=== PATIENT | female | born 1950 | race Caucasian/White ===

== ENCOUNTER 2019-01-12 18:27 | Observation (INO) | payer MEDICARE, BC ==
[2019-01-12] MEDS ORDERED: Sodium Chloride 0.9% 2.5 ML Syringe FLUSH PRN (19:30)
[2019-01-12] MEDS ORDERED: Ketorolac 30 MG/ML SDV IVPUSH ONE (19:30)
[2019-01-12] MEDS ORDERED: Sodium Chloride 0.9% 1,000 ML IV ONE ×2 (19:30→21:18)
[2019-01-12] MEDS ORDERED: Morphine 2 MG/ML Syringe IVPUSH ONE (19:30)
[2019-01-12] MEDS ORDERED: Ondansetron 4 MG/2 ML SDV IVPUSH ONE (19:30)
[2019-01-12] MEDS ORDERED: Sodium Chloride 0.9% 10 ML Syringe FLUSH PRN (19:30)
--- NOTE | 2019-01-12 19:34 | EDM.PDOC ---
ED HPI GENERAL MEDICAL PROBLEM - General Chief Complaint: Gastrointestinal Problem Stated Complaint: PT HAS STOMACH PAINS Time Seen by Provider: 01/12/19 19:25 - History of Present Illness INITIAL COMMENTS - FREE TEXT/NARRATIVE: HISTORY AND PHYSICAL: History of present illness: The patient is a 68-year-old female with a history of hypercholesterolemia and hypothyroidism who has a provider in [place] and presents with a 2 day history of abdominal pain progressing to nausea vomiting. Patient says that at its onset it was somewhat sudden but it was in the middle of her abdomen and now the pain is more radiating to the right upper quadrant and the right flank. She did not have nausea or vomiting until today and today she has not been able to tolerate anything by mouth. She says she has an appetite but she vomits anything that she tries to eat or drink. She's had no GI or history and has no hematuria dysuria or frequency. The patient has not had a fever at home but is felt very hot and has had no upper respiratory symptoms. She is not taking anything [id number] for this. She's been having normal bowel movements which are not diarrhea black or bloody. She's had no recent trauma or illnesses. Review of systems: As per history of present illness and below otherwise all systems reviewed and negative. Past medical history: As per history of present illness and as reviewed below otherwise noncontributory. Surgical history: As per history of present illness and as reviewed below otherwise noncontributory. Social history: No reported history of drug or alcohol abuse. Family history: As per history of present illness and as reviewed below otherwise noncontributory. Physical exam: General: Well-developed well-nourished mildly overweight female who is nontoxic but looks uncomfortable in the room. She keeps moving about and grabbing her right side. Vital signs were noted by me HEENT: Atraumatic, normocephalic, negative for conjunctival pallor or scleral icterus, mucous membranes moist, throat clear, neck supple, nontender, trachea midline. Lungs: Clear to auscultation, breath sounds equal bilaterally, chest nontender. Heart: S1S2, regular rate and rhythm no overt murmurs Abdomen: Soft, nondistended, slightly hyperactive bowel sounds without any tympany on percussion and there is some diffuse vague tenderness to palpation throughout the abdomen more specifically tender in the right upper quadrant and not in the epigastrium. There is no rebound or guarding Negative for masses or hepatosplenomegaly. Negative for costovertebral tenderness. Pelvis: Stable nontender. Genitourinary: Deferred. Rectal: Deferred. Extremities: Atraumatic, negative for cords or calf pain. Neurovascular unremarkable. Neuro: Awake, alert, oriented. Cranial nerves II through XII unremarkable. Cerebellum unremarkable. Motor and sensory unremarkable throughout. Exam nonfocal. Diagnostics: CBC CMP H. pylori amylase lipase UA with reflex CT scan of the abdomen and pelvis Therapeutics: IV fluids Toradol morphine Zofran Dilaudid After receiving the lipase results we queried the patient and she does not drink alcohol and any regular basis and only has it occasionally. 2255: Testing results were discussed with the patient and at bedside as well as with Dr. Tee. We will plan on maintenance IV fluids nothing by mouth status and I will give some more pain medication and plan for observation admission. The hospitalist accepts the patient Impression: Acute pancreatitis Definitive disposition and diagnosis as appropriate pending reevaluation and review of above. abdominal pain Pain Score (Numeric/FACES): 7 - Related Data Allergies Allergy/AdvReac Type Severity Reaction Status Date / Time general anesthesia Allergy Respiratory Uncoded 01/12/19 18:50 Depression Home Meds: Home Meds Estrogen,Con/M-Progest Acet [Prempro 0.3 MG-1.5 MG] 1 tab PO DAILY 10/09/16 [ History] Levothyroxine 1 tab PO DAILY 10/09/16 [History] atorvaSTATin [Lipitor] 1 tab PO DAILY 10/09/16 [History] Naproxen 500 mg PO BID 01/12/19 [History] Past Medical History - Past Health History Medical/Surgical History: Denies Medical/Surgical History Cardiovascular History: Reports: High Cholesterol Other Respiratory History: Reported history of sinusitis. - Infectious Disease History Infectious Disease History: Reports: Chicken Pox - Past Surgical History Other Musculoskeletal Surgeries/Procedures:: ankle repair. back surgery Social & Family History - Family History Family Medical History: Noncontributory - Tobacco Use Smoking Status *Q: Never Smoker - Caffeine Use Caffeine Use: Reports: Coffee Caffeine Use Comment: 2cups/day - Recreational Drug Use Recreational Drug Use: No ED ROS GENERAL - Review of Systems Review Of Systems: ROS reveals no pertinent complaints other than HPI. ED EXAM, GENERAL - Physical Exam Exam: See Below (See dictation) Course - Vital Signs Last Recorded V/S: Last Vital Signs Temp 36.4 C 01/12/19 21:30 Pulse 76 01/12/19 21:30 Resp 18 01/12/19 21:30 BP 146/76 H 01/12/19 21:30 Pulse Ox 96 01/12/19 21:30 - Orders/Labs/Meds Orders: Active Orders 24 hr Category Date Time Status Sodium Chloride 0.9% [Normal Saline] 1,000 ml Med 01/12/19 22:30 Active IV ASDIRECTED Sodium Chloride 0.9% [Saline Flush] Med 01/12/19 19:30 Active 10 ml FLUSH ASDIRECTED PRN Sodium Chloride 0.9% [Saline Flush] Med 01/12/19 19:30 Active 2.5 ml FLUSH ASDIRECTED PRN Saline Lock Insert [OM.PC] Stat Oth 01/12/19 19:30 Ordered Medication Orders Sodium Chloride (Normal Saline) 1,000 mls @ 150 mls/hr IV ASDIRECTED ALEX Sodium Chloride (Saline Flush) 10 ml FLUSH ASDIRECTED PRN PRN Reason: Keep Vein Open Sodium Chloride (Saline Flush) 2.5 ml FLUSH ASDIRECTED PRN PRN Reason: Keep Vein Open Labs: Laboratory Tests 01/12/19 01/12/19 01/12/19 Range/Units 19:47 19:47 19:47 WBC 12.37 H (4.0-11.0) K/uL RBC 4.38 (4.30-5.90) M/uL Hgb 13.5 (12.0-16.0) g/dL Hct 39.3 (36.0-46.0) % MCV 89.7 (80.0-98.0) fL MCH 30.8 (27.0-32.0) pg MCHC 34.4 (31.0-37.0) g/dL RDW Std Deviation 46.6 (28.0-62.0) fl RDW Coeff of [place] 14 (11.0-15.0) % Plt Count 219 (150-400) K/uL MPV 11.90 (7.40-12.00) fL Neut % (Auto) 81.8 H (48.0-80.0) % Lymph % (Auto) 9.3 L (16.0-40.0) % [place] % (Auto) 8.0 (0.0-15.0) % Eos % (Auto) 0.7 (0.0-7.0) % Baso % (Auto) 0.2 (0.0-1.5) % Neut # (Auto) 10.1 H (1.4-5.7) K/uL Lymph # (Auto) 1.2 (0.6-2.4) K/uL [place] # (Auto) 1.0 H (0.0-0.8) K/uL Eos # (Auto) 0.1 (0.0-0.7) K/uL Baso # (Auto) 0.0 (0.0-0.1) K/uL Nucleated RBC % 0.0 /100WBC Nucleated RBCs # 0 K/uL Sodium 143 (136-145) mmol/L Potassium 3.8 (3.5-5.1) mmol/L Chloride 106 (98-107) mmol/L Carbon Dioxide 23.3 (21.0-32.0) mmol/L BUN 22 H (7.0-18.0) mg/dL Creatinine 0.9 (0.6-1.0) mg/dL Est Cr Clr Drug Dosing 62.03 mL/min Estimated GFR (MDRD) > 60.0 ml/min Glucose 114 H (74-106) mg/dL Calcium 9.2 (8.5-10.1) mg/dL Total Bilirubin 0.5 (0.2-1.0) mg/dL AST 12 L (15-37) IU/L ALT 22 (14-63) IU/L Alkaline Phosphatase 75 (46-116) U/L Total Protein 7.8 (6.4-8.2) g/dL Albumin 3.7 (3.4-5.0) g/dL Globulin 4.1 H (2.6-4.0) g/dL Albumin/Globulin Ratio 0.9 (0.9-1.6) Amylase 140 H (25-115) U/L Lipase 1037 H (73-393) U/L Urine Color Urine Appearance Urine pH (5.0-8.0) Ur Specific [place] (1.001-1.035) Urine Protein (NEGATIVE) mg/dL Urine Glucose (UA) (NEGATIVE) mg/dL Urine Ketones (NEGATIVE) mg/dL Urine Occult Blood (NEGATIVE) Urine Nitrite (NEGATIVE) Urine Bilirubin (NEGATIVE) Urine Ictotest Urine Urobilinogen (<2.0) EU/dL Ur Leukocyte Esterase (NEGATIVE) Urine RBC (0-2/HPF) Urine WBC (0-5/HPF) Ur Epithelial Cells (NONE-FEW) Urine Bacteria (NEGATIVE) H. pylori IgG Antibody NEGATIVE (NEG) 01/12/19 Range/Units 20:40 WBC (4.0-11.0) K/uL RBC (4.30-5.90) M/uL Hgb (12.0-16.0) g/dL Hct (36.0-46.0) % MCV (80.0-98.0) fL MCH (27.0-32.0) pg MCHC (31.0-37.0) g/dL RDW Std Deviation (28.0-62.0) fl RDW Coeff of [place] (11.0-15.0) % Plt Count (150-400) K/uL MPV (7.40-12.00) fL Neut % (Auto) (48.0-80.0) % Lymph % (Auto) (16.0-40.0) % [place] % (Auto) (0.0-15.0) % Eos % (Auto) (0.0-7.0) % Baso % (Auto) (0.0-1.5) % Neut # (Auto) (1.4-5.7) K/uL Lymph # (Auto) (0.6-2.4) K/uL [place] # (Auto) (0.0-0.8) K/uL Eos # (Auto) (0.0-0.7) K/uL Baso # (Auto) (0.0-0.1) K/uL Nucleated RBC % /100WBC Nucleated RBCs # K/uL Sodium (136-145) mmol/L Potassium (3.5-5.1) mmol/L Chloride (98-107) mmol/L Carbon Dioxide (21.0-32.0) mmol/L BUN (7.0-18.0) mg/dL Creatinine (0.6-1.0) mg/dL Est Cr Clr Drug Dosing mL/min Estimated GFR (MDRD) ml/min Glucose (74-106) mg/dL Calcium (8.5-10.1) mg/dL Total Bilirubin (0.2-1.0) mg/dL AST (15-37) IU/L ALT (14-63) IU/L Alkaline Phosphatase (46-116) U/L Total Protein (6.4-8.2) g/dL Albumin (3.4-5.0) g/dL Globulin (2.6-4.0) g/dL Albumin/Globulin Ratio (0.9-1.6) Amylase (25-115) U/L Lipase (73-393) U/L Urine Color YELLOW Urine Appearance HAZY Urine pH 5.5 (5.0-8.0) Ur Specific [place] 1.025 (1.001-1.035) Urine Protein TRACE H (NEGATIVE) mg/dL Urine Glucose (UA) NEGATIVE (NEGATIVE) mg/dL Urine Ketones >=80 (NEGATIVE) mg/dL Urine Occult Blood LARGE H (NEGATIVE) Urine Nitrite NEGATIVE (NEGATIVE) Urine Bilirubin SMALL H (NEGATIVE) Urine Ictotest NEGATIVE Urine Urobilinogen 0.2 (<2.0) EU/dL Ur Leukocyte Esterase NEGATIVE (NEGATIVE) Urine RBC 20-30 (0-2/HPF) Urine WBC 1-3 (0-5/HPF) Ur Epithelial Cells FEW (NONE-FEW) Urine Bacteria FEW (NEGATIVE) H. pylori IgG Antibody (NEG) Meds: Medications Generic Name Dose Route Start Last Admin Trade Name Freq PRN Reason Stop Dose Admin Sodium Chloride 1,000 mls @ 150 mls/hr 01/12/19 22:30 Normal Saline IV ASDIRECTED ALEX Sodium Chloride 10 ml 01/12/19 19:30 Saline Flush FLUSH ASDIRECTED PRN Keep Vein Open Sodium Chloride 2.5 ml 01/12/19 19:30 Saline Flush FLUSH ASDIRECTED PRN Keep Vein Open Discontinued Medications Generic Name Dose Route Start Last Admin Trade Name Freq PRN Reason Stop Dose Admin Hydromorphone HCl 1 mg 01/12/19 22:55 Dilaudid IVPUSH 01/12/19 22:56 ONETIME ONE Sodium Chloride 1,000 mls @ 999 mls/hr 01/12/19 19:30 01/12/19 19:54 Normal Saline IV 01/12/19 20:30 999 mls/hr STAT ONE Administration Sodium Chloride 1,000 mls @ 999 mls/hr 01/12/19 21:18 01/12/19 21:28 Normal Saline IV 01/12/19 22:18 999 mls/hr STAT ONE Administration Iopamidol 100 ml 01/12/19 20:40 Isovue-370 (76%) IVPUSH 01/12/19 20:41 ONETIME ONE Ketorolac Tromethamine 30 mg 01/12/19 19:30 01/12/19 19:53 Toradol IVPUSH 01/12/19 19:31 30 mg ONETIME ONE Administration Morphine Sulfate 2 mg 01/12/19 19:30 01/12/19 19:54 Morphine IVPUSH 01/12/19 19:31 2 mg ONETIME ONE Administration Ondansetron HCl 4 mg 01/12/19 19:30 01/12/19 19:53 Zofran IVPUSH 01/12/19 19:31 4 mg ONETIME ONE Administration Departure - Departure Time of Disposition: 22:57 Disposition: Refer to Observation Condition: Good Clinical Impression: Pancreatitis - Discharge Information Referrals: Sukhjinder Walters MD, PhD [Primary Care Provider] - Forms: ED Department Discharge - My Orders Last 24 Hours: My Active Orders 01/12/19 19:30 Sodium Chloride 0.9% [Saline Flush] 10 ml FLUSH ASDIRECTED PRN Sodium Chloride 0.9% [Saline Flush] 2.5 ml FLUSH ASDIRECTED PRN Saline Lock Insert [OM.PC] Stat 01/12/19 22:30 Sodium Chloride 0.9% [Normal Saline] 1,000 ml IV ASDIRECTED - Assessment/Plan Last 24 Hours: My Active Orders 01/12/19 19:30 Sodium Chloride 0.9% [Saline Flush] 10 ml FLUSH ASDIRECTED PRN Sodium Chloride 0.9% [Saline Flush] 2.5 ml FLUSH ASDIRECTED PRN Saline Lock Insert [OM.PC] Stat 01/12/19 22:30 Sodium Chloride 0.9% [Normal Saline] 1,000 ml IV ASDIRECTED
[2019-01-12 20:28] LABS: CHLORIDE,CL 106 mmol/L (98-107); SODIUM,NA 143 mmol/L (136-145)
--- NOTE | 2019-01-12 22:08 | CT ---
INDICATION: Abdominal pain. TECHNIQUE: CT abdomen and pelvis acquired with 100 cc Isovue 370 IV contrast. COMPARISON: None. FINDINGS: Lower chest: Very small hiatal hernia. Liver: Several tiny low attenuation lesions are too small to characterize and of doubtful significance. Gallbladder and bile ducts: Unremarkable. No stones or inflammation. No biliary dilatation. Pancreas: Moderate inflammation is present about the pancreatic head. Remainder of the pancreas is unremarkable. No sign of abscess or pseudocyst. Spleen: Unremarkable. Normal in size. No masses. Adrenal glands: Unremarkable. No nodules. Kidneys: Unremarkable. No masses, stones, or hydronephrosis. GI tract: There is sigmoid diverticulosis. Remainder of the GI tract is normal in caliber and appearance. Normal appendix. Vasculature: Unremarkable. Lymph nodes: No lymphadenopathy. Omentum/Peritoneum/Abdominal Wall: Unremarkable. No sign of mass or infiltration. No free air or significant free fluid. Pelvis: Unremarkable. Bones: Degenerative disc spondylosis is present at L3-4 and to a lesser extent L5-S1. Otherwise unremarkable. IMPRESSION: Moderate acute pancreatitis without complication. No other acute or significant findings. Please note that all CT scans at this facility use dose modulation, iterative reconstruction, and/or weight-based dosing when appropriate to reduce radiation dose to as low as reasonably achievable. Dictated by Migel Rayo MD @ Jan 13 2019 9:31AM Signed by Dr. Migel Rayo @ Jan 13 2019 9:38AM
[2019-01-12] MEDS ORDERED: Sodium Chloride 0.9% 1,000 ML IV SCH (22:30)
[2019-01-12] MEDS ORDERED: HYDROmorphone 1 MG/ML Syringe IVPUSH ONE (22:55)
[2019-01-12] MEDS ORDERED: Acetaminophen 325 MG Tab PO PRN (23:32)
[2019-01-12] MEDS ORDERED: Morphine 2 MG/ML Syringe IVPUSH PRN (23:33)
[2019-01-13] MEDS: Iopamidol 755 Mg/ML 100 ML Bottle IVPUSH ONE ×2 (00:12→10:02)
[2019-01-13] MEDS: oxyCODONE 5 MG Tab PO PRN ×3 (00:13→15:13)
[2019-01-13] MEDS: Ondansetron 4 MG/2 ML SDV IVPUSH PRN ×2 (03:27→15:09)
[2019-01-13] MEDS ORDERED: Enoxaparin 40 MG/0.4 ML Syringe SUBCUT ONE (04:00)
--- NOTE | 2019-01-13 06:45 | PCM.HP ---
H&P History of Present Illness - General Date of Service: 01/13/19 Admit Problem/Dx: Admission Diagnosis/Problem Admission Diagnosis/Problem Pancreatitis Source of Information: Patient History Limitations: Reports: No Limitations - History of Present Illness Initial Comments - Free Text/Narative: The patient is a 68-year-old lady who had presented to the emergency department with severe abdominal pain. The patient does have a primary care physician who she follows with an [place]. She reportedly had a 2 day history of mid abdominal to epigastric pain which radiates from the middle around to both sides of her abdomen. She is also had nausea and vomiting and been unable to tolerate any fluids or food. The patient also has denied any fever or chills. The patient also denies any hematuria, dysuria or frequency. Onset of Symptoms: Reports: Sudden Symptom Onset Date: 01/10/19 Duration of Symptoms: Reports: Day(s): Location: Reports: Abdomen Quality: Reports: Ache, Stabbing, Throbbing Severity: Severe Improves with: Reports: Medication Worsens with: Reports: Eating, Movement abdominal pain Pain Score (Numeric/FACES): 5 - Related Data Allergies/Adverse Reactions: Allergies Allergy/AdvReac Type Severity Reaction Status Date / Time general anesthesia Allergy Respiratory Uncoded 01/12/19 18:50 Depression Home Medications: Home Meds Estrogen,Con/M-Progest Acet [Prempro 0.3 MG-1.5 MG] 1 tab PO DAILY 10/09/16 [ History] Levothyroxine 1 tab PO DAILY 10/09/16 [History] atorvaSTATin [Lipitor] 1 tab PO DAILY 10/09/16 [History] Naproxen 500 mg PO BID 01/12/19 [History] Past Medical History - Past Health History Medical/Surgical History: Denies Medical/Surgical History HEENT History: Reports: None Cardiovascular History: Reports: High Cholesterol Other Respiratory History: Reported history of sinusitis. Gastrointestinal History: Reports: None Genitourinary History: Reports: None Musculoskeletal History: Reports: None Neurological History: Reports: None Psychiatric History: Reports: None Endocrine/Metabolic History: Reports: Hypothyroidism Hematologic History: Reports: None Immunologic History: Reports: None Oncologic (Cancer) History: Reports: None - Infectious Disease History Infectious Disease History: Reports: Chicken Pox, Measles, Mumps, Rubella, Shingles - Past Surgical History Other Musculoskeletal Surgeries/Procedures:: ankle repair. back surgery Social & Family History - Family History Family Medical History: Noncontributory - Tobacco Use Smoking Status *Q: Never Smoker - Caffeine Use Caffeine Use: Reports: Coffee Caffeine Use Comment: 2cups/day - Recreational Drug Use Recreational Drug Use: No - Living Situation & Occupation Living situation: Reports: , with Spouse Occupation: Retired H&P Review of Systems - Review of Systems: Review Of Systems: See Below General: Reports: No Symptoms HEENT: Reports: No Symptoms Pulmonary: Reports: No Symptoms Cardiovascular: Reports: No Symptoms Gastrointestinal: Reports: Abdominal Pain, Anorexia, Nausea, Vomiting Genitourinary: Reports: No Symptoms Musculoskeletal: Reports: No Symptoms Skin: Reports: No Symptoms Psychiatric: Reports: No Symptoms Neurological: Reports: No Symptoms Hematologic/Lymphatic: Reports: No Symptoms Immunologic: Reports: No Symptoms Exam - Exam Exam: See Below - Vital Signs Vital Signs: Last Vital Signs Temp 37.4 C 01/13/19 03:20 Pulse 82 01/13/19 03:20 Resp 18 01/13/19 03:20 BP 130/73 01/13/19 03:20 Pulse Ox 96 01/13/19 03:20 Weight: 90.809 kg - Exam Quality Assessment: No: Supplemental Oxygen General: Alert, Oriented, Cooperative, Mild Distress HEENT: Conjunctiva Clear, EACs Clear, EOMI, Hearing Intact, PERRLA. No: Mucosa Moist & [place] (Dry) Neck: Supple, Trachea Midline Lungs: Clear to Auscultation, Normal Respiratory Effort Cardiovascular: Regular Rate, Regular Rhythm GI/Abdominal Exam: Normal Bowel Sounds, Soft, Tender (Epigastric). No: Guarding , Rigid, Rebound (Female) Exam: Deferred Rectal (Female) Exam: Deferred Back Exam: Normal Inspection Extremities: Normal Inspection, No Pedal Edema Skin: Warm, Dry, Intact, Other ([place] totalis) Neurological: Cranial Nerves Intact Neuro Extensive - Mental Status: Alert, Oriented x3 Neuro Extensive - Motor, Sensory, Reflexes: CN II-XII Intact Psychiatric: Alert, Normal Affect, Normal Mood - Patient Data Lab Results Last 24 hrs: Laboratory Results - last 24 hr 01/12/19 01/12/19 01/12/19 Range/Units 19:47 19:47 19:47 WBC 12.37 H (4.0-11.0) K/uL RBC 4.38 (4.30-5.90) M/uL Hgb 13.5 (12.0-16.0) g/dL Hct 39.3 (36.0-46.0) % MCV 89.7 (80.0-98.0) fL MCH 30.8 (27.0-32.0) pg MCHC 34.4 (31.0-37.0) g/dL RDW Std Deviation 46.6 (28.0-62.0) fl RDW Coeff of [place] 14 (11.0-15.0) % Plt Count 219 (150-400) K/uL MPV 11.90 (7.40-12.00) fL Neut % (Auto) 81.8 H (48.0-80.0) % Lymph % (Auto) 9.3 L (16.0-40.0) % [place] % (Auto) 8.0 (0.0-15.0) % Eos % (Auto) 0.7 (0.0-7.0) % Baso % (Auto) 0.2 (0.0-1.5) % Neut # (Auto) 10.1 H (1.4-5.7) K/uL Lymph # (Auto) 1.2 (0.6-2.4) K/uL [place] # (Auto) 1.0 H (0.0-0.8) K/uL Eos # (Auto) 0.1 (0.0-0.7) K/uL Baso # (Auto) 0.0 (0.0-0.1) K/uL Nucleated RBC % 0.0 /100WBC Nucleated RBCs # 0 K/uL Sodium 143 (136-145) mmol/L Potassium 3.8 (3.5-5.1) mmol/L Chloride 106 (98-107) mmol/L Carbon Dioxide 23.3 (21.0-32.0) mmol/L BUN 22 H (7.0-18.0) mg/dL Creatinine 0.9 (0.6-1.0) mg/dL Est Cr Clr Drug Dosing 62.03 mL/min Estimated GFR (MDRD) > 60.0 ml/min Glucose 114 H (74-106) mg/dL Calcium 9.2 (8.5-10.1) mg/dL Total Bilirubin 0.5 (0.2-1.0) mg/dL AST 12 L (15-37) IU/L ALT 22 (14-63) IU/L Alkaline Phosphatase 75 (46-116) U/L Total Protein 7.8 (6.4-8.2) g/dL Albumin 3.7 (3.4-5.0) g/dL Globulin 4.1 H (2.6-4.0) g/dL Albumin/Globulin Ratio 0.9 (0.9-1.6) Amylase 140 H (25-115) U/L Lipase 1037 H (73-393) U/L Urine Color Urine Appearance Urine pH (5.0-8.0) Ur Specific [place] (1.001-1.035) Urine Protein (NEGATIVE) mg/dL Urine Glucose (UA) (NEGATIVE) mg/dL Urine Ketones (NEGATIVE) mg/dL Urine Occult Blood (NEGATIVE) Urine Nitrite (NEGATIVE) Urine Bilirubin (NEGATIVE) Urine Ictotest Urine Urobilinogen (<2.0) EU/dL Ur Leukocyte Esterase (NEGATIVE) Urine RBC (0-2/HPF) Urine WBC (0-5/HPF) Ur Epithelial Cells (NONE-FEW) Urine Bacteria (NEGATIVE) H. pylori IgG Antibody NEGATIVE (NEG) 01/12/19 01/13/19 Range/Units 20:40 05:55 WBC 12.11 H (4.0-11.0) K/uL RBC 3.84 L (4.30-5.90) M/uL Hgb 11.6 L (12.0-16.0) g/dL Hct 35.1 L (36.0-46.0) % MCV 91.4 (80.0-98.0) fL MCH 30.2 (27.0-32.0) pg MCHC 33.0 (31.0-37.0) g/dL RDW Std Deviation 48.9 (28.0-62.0) fl RDW Coeff of [place] 15 (11.0-15.0) % Plt Count 169 (150-400) K/uL MPV 12.50 H (7.40-12.00) fL Neut % (Auto) 81.7 H (48.0-80.0) % Lymph % (Auto) 9.0 L (16.0-40.0) % [place] % (Auto) 8.8 (0.0-15.0) % Eos % (Auto) 0.3 (0.0-7.0) % Baso % (Auto) 0.2 (0.0-1.5) % Neut # (Auto) 9.9 H (1.4-5.7) K/uL Lymph # (Auto) 1.1 (0.6-2.4) K/uL [place] # (Auto) 1.1 H (0.0-0.8) K/uL Eos # (Auto) 0.0 (0.0-0.7) K/uL Baso # (Auto) 0.0 (0.0-0.1) K/uL Nucleated RBC % 0.0 /100WBC Nucleated RBCs # 0 K/uL Sodium (136-145) mmol/L Potassium (3.5-5.1) mmol/L Chloride (98-107) mmol/L Carbon Dioxide (21.0-32.0) mmol/L BUN (7.0-18.0) mg/dL Creatinine (0.6-1.0) mg/dL Est Cr Clr Drug Dosing mL/min Estimated GFR (MDRD) ml/min Glucose (74-106) mg/dL Calcium (8.5-10.1) mg/dL Total Bilirubin (0.2-1.0) mg/dL AST (15-37) IU/L ALT (14-63) IU/L Alkaline Phosphatase (46-116) U/L Total Protein (6.4-8.2) g/dL Albumin (3.4-5.0) g/dL Globulin (2.6-4.0) g/dL Albumin/Globulin Ratio (0.9-1.6) Amylase (25-115) U/L Lipase (73-393) U/L Urine Color YELLOW Urine Appearance HAZY Urine pH 5.5 (5.0-8.0) Ur Specific [place] 1.025 (1.001-1.035) Urine Protein TRACE H (NEGATIVE) mg/dL Urine Glucose (UA) NEGATIVE (NEGATIVE) mg/dL Urine Ketones >=80 (NEGATIVE) mg/dL Urine Occult Blood LARGE H (NEGATIVE) Urine Nitrite NEGATIVE (NEGATIVE) Urine Bilirubin SMALL H (NEGATIVE) Urine Ictotest NEGATIVE Urine Urobilinogen 0.2 (<2.0) EU/dL Ur Leukocyte Esterase NEGATIVE (NEGATIVE) Urine RBC 20-30 (0-2/HPF) Urine WBC 1-3 (0-5/HPF) Ur Epithelial Cells FEW (NONE-FEW) Urine Bacteria FEW (NEGATIVE) H. pylori IgG Antibody (NEG) Result Diagrams: 01/13/19 05:55 01/13/19 05:55 - Problem List (1) Pancreatitis SNOMED Code(s): 58482608 ICD Code: K85.90 - ACUTE PANCREATITIS WITHOUT NECROSIS OR INFECTION, UNSP Status: Acute Priority: High Current Visit: Yes (2) Nausea & vomiting SNOMED Code(s): 02125288 ICD Code: R11.2 - NAUSEA WITH VOMITING, UNSPECIFIED Status: Acute Priority: High Current Visit: Yes Qualifiers: Vomiting type: unspecified Vomiting Intractability: intractable Qualified Code(s): R11.2 - Nausea with vomiting, unspecified (3) Hypothyroidism SNOMED Code(s): 28771068 ICD Code: E03.9 - HYPOTHYROIDISM, UNSPECIFIED Status: Chronic Priority: Medium Current Visit: Yes Qualifiers: Hypothyroidism type: acquired Qualified Code(s): E03.9 - Hypothyroidism, unspecified (4) Dyslipidemia SNOMED Code(s): 515124777 ICD Code: E78.5 - HYPERLIPIDEMIA, UNSPECIFIED Status: Chronic Priority: Low Current Visit: Yes Problem List Initiated/Reviewed/Updated: Yes Orders Last 24hrs: Active Orders 24 hr Category Date Time Status Patient Status [ADT] Stat ADT 01/12/19 22:57 Active Oxygen Therapy [RC] PRN Care 01/13/19 03:38 Active [place] ad [place] [RC] ASDIRECTED Care 01/13/19 03:38 Active VTE/DVT Education [RC] PER UNIT ROUTINE Care 01/13/19 03:38 Active Vital Signs [RC] Q4H Care 01/13/19 03:38 Active NPO Now [Nothing per Oral Now Diet] [DIET] Diet 01/13/19 Breakfast Active Abdomen Ltd [US] Routine Exams 01/13/19 08:00 Ordered BMP [BASIC METABOLIC PANEL,BMP] [CHEM] AM Lab 01/13/19 05:55 Received Acetaminophen [Tylenol] Med 01/12/19 23:32 Active 650 mg PO Q6H PRN Enoxaparin [Lovenox] Med 01/14/19 09:00 Active 40 mg SUBCUT Q24H Morphine Med 01/12/19 23:33 Active 2 mg IVPUSH Q2H PRN Ondansetron [Zofran] Med 01/13/19 03:19 Active 4 mg IVPUSH Q4H PRN Sodium Chloride 0.9% [Normal Saline] 1,000 ml Med 01/12/19 23:45 Active IV ASDIRECTED Sodium Chloride 0.9% [Saline Flush] Med 01/12/19 19:30 Active 10 ml FLUSH ASDIRECTED PRN Sodium Chloride 0.9% [Saline Flush] Med 01/12/19 19:30 Active 2.5 ml FLUSH ASDIRECTED PRN oxyCODONE Med 01/12/19 23:32 Active 5 mg PO Q4H PRN Saline Lock Insert [OM.PC] Stat Oth 01/12/19 19:30 Ordered Resuscitation Status Routine Resus Stat 01/13/19 03:38 Ordered Medication Orders Acetaminophen (Tylenol) 650 mg PO Q6H PRN PRN Reason: Pain (mild 1-3) Enoxaparin Sodium (Lovenox) 40 mg SUBCUT Q24H ALEX Sodium Chloride (Normal Saline) 1,000 mls @ 125 mls/hr IV ASDIRECTED ALEX Morphine Sulfate (Morphine) 2 mg IVPUSH Q2H PRN PRN Reason: Pain (severe 7-10) Last Admin: 01/13/19 03:30 Dose: 2 mg Ondansetron HCl (Zofran) 4 mg IVPUSH Q4H PRN PRN Reason: Nausea/Vomiting Last Admin: 01/13/19 03:27 Dose: 4 mg Oxycodone HCl (Oxycodone) 5 mg PO Q4H PRN PRN Reason: Pain (moderate 4-6) Last Admin: 01/13/19 05:18 Dose: 5 mg Admin: 01/13/19 00:13 Dose: 5 mg Sodium Chloride (Saline Flush) 10 ml FLUSH ASDIRECTED PRN PRN Reason: Keep Vein Open Sodium Chloride (Saline Flush) 2.5 ml FLUSH ASDIRECTED PRN PRN Reason: Keep Vein Open Assessment/Plan Comment:: The patient is a 68-year-old lady who had been admitted to acute hospitalization secondary to pancreatitis. The patient has no history of alcohol use and her CT scan did not show any evidence of gallstones. I've ordered an ultrasound of her right upper quadrant to exclude x-ray translucent gallstones. The patient for now will be kept nothing by mouth. I've also ordered IV fluids at 125 mL per hour of normal saline. The patient will have pain control with the use of morphine. The patient also have DVT prophylaxis with the use of Lovenox. The patient have repeat laboratory studies ordered in the morning. Once patient has has had adequate pain control and her nausea and vomiting has resolved patient will have her diet advanced. The patient should be appropriate for discharge in 1-2 days.
[2019-01-13 06:46] LABS: CHLORIDE,CL 111 mmol/L (98-107); SODIUM,NA 143 mmol/L (136-145)
[2019-01-13] MEDS: Sodium Chloride 0.9% 1,000 ML IV SCH ×3 (07:10→23:04)
[2019-01-13] MEDS ORDERED: Promethazine 25 MG/ML SDV IM ONE (07:38)
[2019-01-13] MEDS ORDERED: Iopamidol 755 MG/ML 500 ML Multipack Bottle IVPUSH STA (09:59)
--- NOTE | 2019-01-13 11:28 | US ---
HISTORY: Pancreatitis. TECHNIQUE: Limited abdominal ultrasound. COMPARISON: CT 01/12/2019. FINDINGS: The pancreatic tail is obscured by bowel gas. The peripancreatic inflammatory changes at CT are less well seen by ultrasound. No pseudocyst is appreciated. The liver size and echogenicity are within normal limits. There is no intrahepatic or extrahepatic biliary ductal dilatation. The extrahepatic bile duct measures 2 mm which is normal. The gallbladder is normal without sludge, stones, wall thickening or pericholecystic fluid. Sonographic Arellano sign is absent. No abnormality involving visualized right kidney. No upper abdominal ascites. IMPRESSION: 1. Normal gallbladder. 2. No biliary ductal dilatation. Dictated by Abad Christian MD @ 01/13/2019 11:27:25 AM Dictated by: Abad Christian MD @ 01/13/2019 11:27:30 (Electronically Signed)
[2019-01-13] MEDS: Acetaminophen 325 MG Tab PO PRN (21:13)
[2019-01-14] MEDS: Acetaminophen 325 MG Tab PO PRN ×4 (01:18→13:55)
[2019-01-14] MEDS: Sodium Chloride 0.9% 1,000 ML IV SCH (05:31)
[2019-01-14] MEDS ORDERED: Enoxaparin 40 MG/0.4 ML Syringe SUBCUT SCH (09:00)
[2019-01-14 09:07] LABS: CHLORIDE,CL 112 mmol/L (98-107); SODIUM,NA 146 mmol/L (136-145)
--- NOTE | 2019-01-14 10:34 | PCM.DCSUM1 ---
Discharge Summary - Hospital Course Diagnosis: Stroke: No - Discharge Data Discharge Date: 01/14/19 Discharge Disposition: Home, Self-Care 01 Condition: Good - Discharge Diagnosis/Problem(s) (1) Pancreatitis SNOMED Code(s): 47191615 ICD Code: K85.90 - ACUTE PANCREATITIS WITHOUT NECROSIS OR INFECTION, UNSP Status: Resolved Priority: High (2) Nausea & vomiting SNOMED Code(s): 76935409 ICD Code: R11.2 - NAUSEA WITH VOMITING, UNSPECIFIED Status: Resolved Priority: High Qualifiers: Vomiting type: unspecified Vomiting Intractability: intractable Qualified Code(s): R11.2 - Nausea with vomiting, unspecified (3) Hypothyroidism SNOMED Code(s): 69441632 ICD Code: E03.9 - HYPOTHYROIDISM, UNSPECIFIED Status: Chronic Priority: Medium Qualifiers: Hypothyroidism type: acquired Qualified Code(s): E03.9 - Hypothyroidism, unspecified (4) Dyslipidemia SNOMED Code(s): 875897685 ICD Code: E78.5 - HYPERLIPIDEMIA, UNSPECIFIED Status: Chronic Priority: Low - Patient Summary/Data Hospital Course: The patient is an otherwise healthy 68-year-old lady who had presented to the emergency department with severe abdominal pain. She normally follows with a primary care physician in [place]. Patient reports that she had epigastric pain which did radiate around the sides and into her back. The patient also had severe nausea and vomiting to accompany this. The patient has denied any alcohol use. She had been admitted secondary to pancreatitis and through the emergency room the patient had an amylase elevated at 140 and a lipase of 137. Her physical examination was also consistent with pancreatitis. The patient also had a CT scan obtained on January 12, 2019 which showed moderate acute pancreatitis without complication. Was also noted to have no other acute or significant findings per radiology. A follow-up ultrasound to help exclude liver abnormalities or gallstones did not show any evidence of biliary dilation along with a normal gallbladder. The patient had been tolerating her diet. She is to follow-up with her primary care physician. The patient is also to have activity as tolerated. I explained to the patient and her that giving her medical history issues causing the pancreatitis may not be discovered has most common cases have been excluded. The patient has been hemodynamically stable and she is discharged from hospitalization with recommendations listed above. - Patient Instructions Diet: Heart Healthy Diet Activity: As Tolerated Notify Provider of: Fever, Increased Pain, Nausea and/or Vomiting - Discharge Plan *PRESCRIPTION DRUG MONITORING PROGRAM REVIEWED*: No *COPY OF PRESCRIPTION DRUG MONITORING REPORT IN PATIENT DAVID: No Home Medications: Home Meds Estrogen,Con/M-Progest Acet [Prempro 0.3 MG-1.5 MG] 1 tab PO DAILY 10/09/16 [ History] Levothyroxine 1 tab PO DAILY 10/09/16 [History] atorvaSTATin [Lipitor] 1 tab PO DAILY 10/09/16 [History] Naproxen 500 mg PO BID 01/12/19 [History] Oxygen Therapy Mode: Room Air Patient Handouts: Acute Pancreatitis, [id number] Referrals: [facility] [Outside] Sukhjinder Walters MD, PhD [Primary Care Provider] - Lila Hussein DO [Physician] - (Please call on Tuesday, January 15 and schedule a follow up appointment.) - Discharge Summary/Plan Comment DC Time >30 min.: Yes - General Info Date of Service: 01/14/19 Admission Dx/Problem (Free Text: Admission Diagnosis/Problem Admission Diagnosis/Problem Pancreatitis Subjective Update: Tolerating diet, pain free. Functional Status: Reports: Pain Controlled - Review of Systems General: Reports: No Symptoms HEENT: Reports: No Symptoms Pulmonary: Reports: No Symptoms Cardiovascular: Reports: No Symptoms Gastrointestinal: Reports: No Symptoms Genitourinary: Reports: No Symptoms Musculoskeletal: Reports: No Symptoms Skin: Reports: No Symptoms Neurological: Reports: No Symptoms Psychiatric: Reports: No Symptoms - Patient Data Vitals - Most Recent: Last Vital Signs Temp 35.9 C 01/14/19 07:45 Pulse 71 01/14/19 07:45 Resp 16 01/14/19 07:45 BP 131/77 01/14/19 07:45 Pulse Ox 96 01/14/19 07:45 Weight - Most Recent: 90.809 kg I&O - Last 24 hours: Intake & Output 01/13/19 01/14/19 01/14/19 22:59 06:59 14:59 Intake Total 1697 1050 Output Total 100 400 Balance 1597 650 Lab Results - Last 24 hrs: Laboratory Results - last 24 hr 01/14/19 01/14/19 Range/Units 08:08 08:08 WBC 8.68 (4.0-11.0) K/uL RBC 3.59 L (4.30-5.90) M/uL Hgb 11.0 L (12.0-16.0) g/dL Hct 33.2 L (36.0-46.0) % MCV 92.5 (80.0-98.0) fL MCH 30.6 (27.0-32.0) pg MCHC 33.1 (31.0-37.0) g/dL RDW Std Deviation 49.9 (28.0-62.0) fl RDW Coeff of [place] 15 (11.0-15.0) % Plt Count 177 (150-400) K/uL MPV 12.50 H (7.40-12.00) fL Neut % (Auto) 79.1 (48.0-80.0) % Lymph % (Auto) 13.4 L (16.0-40.0) % [place] % (Auto) 6.5 (0.0-15.0) % Eos % (Auto) 0.8 (0.0-7.0) % Baso % (Auto) 0.2 (0.0-1.5) % Neut # (Auto) 6.9 H (1.4-5.7) K/uL Lymph # (Auto) 1.2 (0.6-2.4) K/uL [place] # (Auto) 0.6 (0.0-0.8) K/uL Eos # (Auto) 0.1 (0.0-0.7) K/uL Baso # (Auto) 0.0 (0.0-0.1) K/uL Nucleated RBC % 0.0 /100WBC Nucleated RBCs # 0 K/uL Sodium 146 H (136-145) mmol/L Potassium 3.6 (3.5-5.1) mmol/L Chloride 112 H (98-107) mmol/L Carbon Dioxide 24.0 (21.0-32.0) mmol/L BUN 13 (7.0-18.0) mg/dL Creatinine 0.7 (0.6-1.0) mg/dL Est Cr Clr Drug Dosing 79.75 mL/min Estimated GFR (MDRD) > 60.0 ml/min Glucose 86 (74-106) mg/dL Calcium 8.3 L (8.5-10.1) mg/dL Total Bilirubin 0.4 (0.2-1.0) mg/dL AST 12 L (15-37) IU/L ALT 17 (14-63) IU/L Alkaline Phosphatase 59 (46-116) U/L Total Protein 6.3 L (6.4-8.2) g/dL Albumin 2.6 L (3.4-5.0) g/dL Globulin 3.7 (2.6-4.0) g/dL Albumin/Globulin Ratio 0.7 L (0.9-1.6) Lipase 189 (73-393) U/L Med Orders - Current: Current Medications Acetaminophen (Tylenol) 650 mg PO Q4H PRN PRN Reason: Pain (mild 1-3) Last Admin: 01/14/19 09:52 Dose: 650 mg Enoxaparin Sodium (Lovenox) 40 mg SUBCUT Q24H [facility] Last Admin: 01/14/19 09:55 Dose: 40 mg Sodium Chloride (Normal Saline) 1,000 mls @ 125 mls/hr IV ASDIRECTED ALEX Last Admin: 01/14/19 05:31 Dose: 125 mls/hr Morphine Sulfate (Morphine) 2 mg IVPUSH Q2H PRN PRN Reason: Pain (severe 7-10) Last Admin: 01/13/19 03:30 Dose: 2 mg Ondansetron HCl (Zofran) 4 mg IVPUSH Q4H PRN PRN Reason: Nausea/Vomiting Last Admin: 01/13/19 15:09 Dose: 4 mg Oxycodone HCl (Oxycodone) 5 mg PO Q4H PRN PRN Reason: Pain (moderate 4-6) Last Admin: 01/13/19 15:13 Dose: 5 mg Sodium Chloride (Saline Flush) 10 ml FLUSH ASDIRECTED PRN PRN Reason: Keep Vein Open Sodium Chloride (Saline Flush) 2.5 ml FLUSH ASDIRECTED PRN PRN Reason: Keep Vein Open Discontinued Medications Acetaminophen (Tylenol) 650 mg PO Q6H PRN PRN Reason: Pain (mild 1-3) Last Admin: 01/13/19 10:25 Dose: 650 mg Enoxaparin Sodium (Lovenox) 40 mg SUBCUT ONETIME ONE Stop: 01/13/19 04:01 Last Admin: 01/13/19 05:06 Dose: 40 mg Hydromorphone HCl (Dilaudid) 1 mg IVPUSH ONETIME ONE Stop: 01/12/19 22:56 Last Admin: 01/12/19 23:03 Dose: 1 mg Sodium Chloride (Normal Saline) 1,000 mls @ 999 mls/hr IV STAT ONE Stop: 01/12/19 20:30 Last Admin: 01/12/19 19:54 Dose: 999 mls/hr Sodium Chloride (Normal Saline) 1,000 mls @ 999 mls/hr IV STAT ONE Stop: 01/12/19 22:18 Last Admin: 01/12/19 21:28 Dose: 999 mls/hr Sodium Chloride (Normal Saline) 1,000 mls @ 150 mls/hr IV ASDIRECTED ALEX Last Admin: 01/12/19 23:05 Dose: 150 mls/hr Iopamidol (Isovue-370 (76%)) 100 ml IVPUSH ONETIME ONE Stop: 01/12/19 20:41 Last Admin: 01/13/19 10:02 Dose: 100 ml Iopamidol (Isovue Multipack-370 (76%)) 100 ml IVPUSH ONETIME STA Stop: 01/13/19 10:00 Last Admin: 01/13/19 13:10 Dose: Not Given Ketorolac Tromethamine (Toradol) 30 mg IVPUSH ONETIME ONE Stop: 01/12/19 19:31 Last Admin: 01/12/19 19:53 Dose: 30 mg Morphine Sulfate (Morphine) 2 mg IVPUSH ONETIME ONE Stop: 01/12/19 19:31 Last Admin: 01/12/19 19:54 Dose: 2 mg Ondansetron HCl (Zofran) 4 mg IVPUSH ONETIME ONE Stop: 01/12/19 19:31 Last Admin: 01/12/19 19:53 Dose: 4 mg Promethazine HCl (Phenergan) 25 mg IM ONETIME ONE Stop: 01/13/19 07:39 Last Admin: 01/13/19 09:25 Dose: 25 mg - Exam Quality Assessment: Denies: Supplemental Oxygen General: Reports: Alert, Oriented, Cooperative, No Acute Distress HEENT: Reports: Pupils Equal, Pupils Reactive, EOMI Neck: Reports: Supple, Trachea Midline Lungs: Reports: Clear to Auscultation, Normal Respiratory Effort Cardiovascular: Reports: Regular Rate, Regular Rhythm GI/Abdominal Exam: Normal Bowel Sounds, Soft, No Distention. No: Guarding, Rigid, Rebound, Tender (Female) Exam: Deferred Rectal (Female) Exam: Deferred Back Exam: Reports: Normal Inspection, Full Range of Motion Extremities: Normal Inspection, No Pedal Edema Skin: Reports: Warm, Dry, Intact Neurological: Reports: No New Focal Deficit, Normal Gait Psy/Mental Status: Reports: Alert, Normal Affect, Normal Mood
[2019-01-14 12:36] VITALS: BP 135/78
== END 2019-01-14 14:35 | disposition home or self-care (01) ==
LOC: MW.ED 18:27 → MW.MS 22:57
PROVIDERS: ADMIT Internal Medicine; ATTEND Internal Medicine
DX: K85.90 Acute pancreatitis without necrosis or infection, unspecified (principal); E03.9 Hypothyroidism, unspecified; E78.00 Pure hypercholesterolemia, unspecified; Z79.1 Long term (current) use of non-steroidal anti-inflammatories (NSAID); Z79.899 Other long term (current) drug therapy
CPT/HCPCS: 36415; 74177; 76705; 80048; 80053; 81001; 82150; 83690; 85025; 86677; 96361; 96372; 96374; 96375; 96376; 99285; A9270; G0378; J1170; J1650; J1885; J2270; J2405; J2550; J7040; Q9967; 99283